=== PATIENT | male | born 1990 | race Caucasian/White ===

== ENCOUNTER 2017-09-12 12:27 | Inpatient (IN) | payer SELFPAY ==
--- NOTE | 2017-09-12 13:00 | ER Document Report ---
ED Medical Screen (RME) - General Chief Complaint: Hand Swelling Stated Complaint: HAND PAIN Time Seen by Provider: 09/12/17 12:58 Mode of Arrival: Ambulatory Information source: Patient Notes: Patient states he developed a hand abscess that started 2 days ago. Yesterday he went to urgent care and they tried to do an incision and drainage as well as gave him antibiotics. He states today it is more swollen and more painful. He states the swelling has spread throughout his hand now. He is a commercial truck driver. He states he is commonly injured by different sea creatures but does not know of a specific injury. TRAVEL OUTSIDE OF THE [place] IN LAST 30 DAYS: No - Related Data Allergies/Adverse Reactions: No Known Allergies Allergy (Unverified 06/10/12 13:40) Past Medical History - Social History Frequency of alcohol use: Occasional Drug Abuse: Marijuana Renal/ Medical History: Denies: Hx Peritoneal Dialysis Traumatic Medical History: Reports: Hx Fractures - FINGERS Physical Exam - Vital signs Vitals: Temp Pulse Resp BP Pulse Ox 98.3 F 74 18 141/77 H 99 09/12/17 12:32 09/12/17 12:32 09/12/17 12:32 09/12/17 12:32 09/12/17 12:32 Course - Vital Signs Vital signs: Temp Pulse Resp BP Pulse Ox 98.3 F 74 18 141/77 H 99 09/12/17 12:32 09/12/17 12:32 09/12/17 12:32 09/12/17 12:32 09/12/17 12:32
--- NOTE | 2017-09-12 13:59 | ER Document Report ---
ED Hand/Wrist Injury - General Chief Complaint: Hand Swelling Stated Complaint: HAND PAIN Time Seen by Provider: 09/12/17 12:58 Mode of Arrival: Ambulatory Information source: Patient TRAVEL OUTSIDE OF THE [place] IN LAST 30 DAYS: No - HPI Injury to: Hand Onset: Last week Where: Outdoors, Work - [employer] Timing: Constant Quality of pain: Dull, Pressure, Throbbing Severity: Moderate Context: Other - MINOR PUNCTURE WOUND Notes: Patient states he was seen by his primary care provider yesterday. An incision and drainage was performed, with very little drainage present. He was given ceftriaxone intramuscular, and prescribed doxycycline and levofloxacin. He states he has been compliant with these medications, however, the swelling and discomfort have increased since beginning treatment yesterday. - Related Data Allergies/Adverse Reactions: No Known Allergies Allergy (Unverified 06/10/12 13:40) Past Medical History - General Information source: Patient - Social History Smoking Status: Current Every Day Smoker Cigarette use (# per day): Yes Chew tobacco use (# tins/day): No Frequency of alcohol use: Occasional Drug Abuse: Marijuana Lives with: Family Family History: Reviewed & Not Pertinent Patient has suicidal ideation: No Patient has homicidal ideation: No - Medical History Medical History: Negative Renal/ Medical History: Denies: Hx Peritoneal Dialysis Traumatic Medical History: Reports: Hx Fractures - FINGERS Surgical Hx: Negative Review of Systems - Review of Systems Constitutional: denies: Chills, Fever EENT: No symptoms reported Cardiovascular: No symptoms reported Respiratory: No symptoms reported Gastrointestinal: No symptoms reported Genitourinary: No symptoms reported Musculoskeletal: See HPI Skin: See HPI Neurological/Psychological: No symptoms reported Physical Exam - Vital signs Vitals: Temp Pulse Resp BP Pulse Ox 98.3 F 74 18 141/77 H 99 09/12/17 12:32 09/12/17 12:32 09/12/17 12:32 09/12/17 12:32 09/12/17 12:32 Interpretation: Hypertensive. No: Tachycardic, Febrile - General General appearance: Appears well, Alert In distress: None - HEENT Head: Normocephalic Eyes: Normal Conjunctiva: Normal Ears: Normal Nasal: Normal Mouth/Lips: Normal Mucous membranes: Normal - Respiratory Respiratory status: No respiratory distress - Cardiovascular Rhythm: Regular - Abdominal Inspection: Normal Distension: No distension - Extremities General upper extremity: No: Normal inspection - L. HAND (SEE BELOW) General lower extremity: Normal inspection Notes: On the extensor surface of the left hand, overlying the second and third metacarpals, is a tender, nodular lesion approximately 1-1/2 cm in diameter. It is erythematous with some violaceous coloration around the periphery and a few small vesicular lesions. Surrounding the primary lesion is moderate edema, which occupies the entire dorsum of the hand and extends beyond the wrist into the forearm. Active range of motion of the fingers is limited by pain and swelling. Passive flexion of the fingers is painful, but all fingers are affected equally. Capillary refill for each nail bed is less than 2 seconds. There is no adenopathy in the elbow area. Minimal fluid is expressed from the lesion, and a specimen is sent to lab for culture. - Neurological Neuro grossly intact: Yes Cognition: Normal Orientation: AAOx4 - Psychological Associated symptoms: Normal affect, Normal mood - Skin Skin Temperature: Warm Skin Moisture: Dry Skin Color: Normal Skin Turgor: Elastic Skin irregularity: Lesion - SEE "UPPER EXTREMITY" ABOVE Course - Vital Signs Vital signs: Temp Pulse Resp BP Pulse Ox 97.7 F 49 L 16 110/67 99 09/12/17 23:16 09/12/17 23:16 09/12/17 23:16 09/12/17 23:16 09/12/17 23:16 - Laboratory Result Diagrams: 09/12/17 14:55 09/12/17 17:11 Laboratory results interpreted by me: 09/12/17 14:55 WBC 12.3 H Seg Neutrophils % 85.4 H Lymphocytes % 10.0 L Absolute Neutrophils 10.5 H - Consults DR. GOMEZ Time consulted: 15:48 Reason for consultation: 09/12/17 16:03 AGREES TO SEE PATIENT IN CONSULTATION DR. LAKE Time consulted: 16:00 Consulted provider: will come to ER Discharge - Discharge Clinical Impression: Infected puncture wound of hand Qualifiers: Encounter type: initial encounter Laterality: left Qualified Code(s): S61.432A - Puncture wound without foreign body of left hand, initial encounter Condition: Stable Disposition: ADMITTED OBSERVATION Admitting Provider: Hospitalist Unit Admitted: Medical Floor
[2017-09-12] MEDS ORDERED: DOXYCYCLINE HYCLATE INJ 100 MG VIAL IV ONE (14:17)
[2017-09-12] MEDS ORDERED: CEFTAZIDIME INJ 1 GM VIAL IV ONE ×2 (14:17→18:45)
--- NOTE | 2017-09-12 15:04 | RADIOLOGY REPORT (SQ) ---
EXAM DESCRIPTION: HAND LEFT 3 VIEWS COMPLETED DATE/TIME: 09/12/2017 2:47 pm REASON FOR STUDY: INFECTED WOUND, R/O FB COMPARISON: None. EXAM PARAMETERS: NUMBER OF VIEWS: Three views. TECHNIQUE: AP, lateral and oblique radiographic images acquired of the left hand. LIMITATIONS: None. FINDINGS: MINERALIZATION: Normal. BONES: No acute fracture or dislocation. No worrisome bone lesions. JOINTS: No effusions. SOFT TISSUES: There is apparent focal soft tissue swelling. No definite radiopaque foreign body is i dentified. OTHER: No other significant finding. IMPRESSION: There is apparent focal soft tissue swelling without a definite radiopaque foreign body being identified. Other findings as noted above TECHNICAL DOCUMENTATION: JOB ID: [id number] [employer]- All Rights Reserved Reading location - IP/workstation name: [email or web address]
[2017-09-12] MEDS ORDERED: IPRATROPIUM/ALBUTEROL 0.5-2.5 MG/3 ML AMPUL NEB PRN (15:59)
[2017-09-12] MEDS ORDERED: MAGNESIUM HYDROXIDE SUSP 30 ML UDCUP PO PRN (15:59)
[2017-09-12] MEDS ORDERED: MAG HYDROX/AL HYDROX/SIMETH SUSP 30 ML UDCUP PO PRN (15:59)
[2017-09-12 16:28] LABS: ABSOLUTE LYMPHOCYTES (AUTO) 1.2 10^3/uL (0.5-4.7); ABSOLUTE MONOCYTES (AUTO) 0.5 10^3/uL (0.1-1.4); ABSOLUTE NEUT (AUTO) 10.5 10^3/uL (1.7-8.2); BASOPHILS % (AUTO) 0.3 % (0-2); EOSINOPHILS % (AUTO) 0.2 % (0-6); HEMOGLOBIN 16.2 g/dL (13.5-17.0); MEAN CORPUSCULAR HEMOGLOBIN 29.2 pg (27.0-33.4); MEAN CORPUSCULAR HGB CONC 33.8 g/dL (32.0-36.0); MEAN CORPUSCULAR VOLUME 87 fl (80-97); MONOCYTES % (AUTO) 4.1 % (3-13); PLATELET COUNT 205 10^3/uL (150-450); RED BLOOD COUNT 5.54 10^6/uL (4.35-5.55); RED CELL DISTRIBUTION WIDTH 12.8 % (11.5-14.0); SEGMENTED NEUTROPHILS % (AUTO) 85.4 % (42-78); TOTAL CELLS COUNTED % (AUTO) 100 %; WHITE BLOOD COUNT 12.3 10^3/uL (4.0-10.5)
[2017-09-12] MEDS ORDERED: OXYCODONE-ACETAMINOPHEN 5-325 MG TABLET PO ONE (16:43)
--- NOTE | 2017-09-12 17:18 | PDOC H&P ---
History of Present Illness Admission Date/PCP: 09/12/17 16:45 Patient complains of: Left hand pain and swelling History of Present Illness: BELEM SOLANO is a 27 year old male without past medical history who presents with a one-week swelling to the dorsum of his left hand after inoculation from a catfish josh prompting him to seek evaluation at urgent care 48 hours ago. The lesion was lanced and drained he received Levaquin and doxycycline and IM Rocephin. Patient has had significant worsening of pain that ascends the forearm and swelling of the hand preventing clenching a fist. He has had subjective fevers prompting evaluation in the emergency room where he was found to have a 1 cm fluctuant draining boil on the dorsum of the left hand with circumferential erythema and pain. He receives empiric antibiotics of doxycycline and Keflex and referred to the hospitalist for admission. Patient denies recurrent infections or previous episode. Past Medical History Medical History: None Cardiac Medical History: Reports: None Pulmonary Medical History: Reports: None EENT Medical History: Reports: None Neurological Medical History: Reports: None Endocrine Medical History: Reports: None Renal/ Medical History: Reports: None Malignancy Medical History: Reports: None GI Medical History: Reports: None Musculoskeltal Medical History: Reports: None Psychiatric Medical History: Reports: None Traumatic Medical History: Reports: None Hematology: Reports: None Infectious Medical History: Reports: None Past Surgical History Past Surgical History: Reports: None Social History Information Source: Patient Smoking Status: Current Every Day Smoker Frequency of Alcohol Use: Occasional Drugs: None - Advance Directive Resuscitation Status: Full Code Family History Family History: None Parental Family History Reviewed: Yes Children Family History Reviewed: Yes Sibling(s) Family History Reviewed.: Yes Medication/Allergy Home Medications: No Home Medications 1 06/10/12 Oxycodone HCl/Acetaminophen [Percocet 5-325 mg Tablet] 1 - 2 tab PO ASDIR PRN # 15 tablet 06/10/12 Penicillin V Potassium [Penicillin Vk 500 mg Tablet] 500 mg PO BID #20 tablet Allergies/Adverse Reactions: No Known Allergies Allergy (Unverified 06/10/12 13:40) Review of Systems Constitutional: ABSENT: chills, fever(s), headache(s), weight gain, weight loss Eyes: ABSENT: visual disturbances Ears: ABSENT: hearing changes Cardiovascular: ABSENT: chest pain, dyspnea on exertion, edema, orthropnea, palpitations Respiratory: ABSENT: cough, hemoptysis Gastrointestinal: ABSENT: abdominal pain, constipation, diarrhea, hematemesis, hematochezia, nausea, vomiting Genitourinary: ABSENT: dysuria, hematuria Musculoskeletal: ABSENT: joint swelling Integumentary: ABSENT: rash, wounds Neurological: ABSENT: abnormal gait, abnormal speech, confusion, dizziness, focal weakness, syncope Psychiatric: ABSENT: anxiety, depression, homidical ideation, suicidal ideation Endocrine: ABSENT: cold intolerance, heat intolerance, polydipsia, polyuria Hematologic/Lymphatic: ABSENT: easy bleeding, easy bruising Physical Exam Vital Signs: Temp Pulse Resp BP Pulse Ox 98.3 F 74 18 141/77 H 99 09/12/17 12:32 09/12/17 12:32 09/12/17 12:32 09/12/17 12:32 09/12/17 12:32 General appearance: PRESENT: mild distress, well-developed, well-nourished Head exam: PRESENT: atraumatic, normocephalic Eye exam: PRESENT: conjunctiva pink, EOMI, PERRLA. ABSENT: scleral icterus Ear exam: PRESENT: normal external ear exam Mouth exam: PRESENT: moist, tongue midline Neck exam: ABSENT: carotid bruit, JVD, lymphadenopathy, thyromegaly Respiratory exam: PRESENT: clear to auscultation kennedy. ABSENT: rales, rhonchi, wheezes Cardiovascular exam: PRESENT: RRR. ABSENT: diastolic murmur, rubs, systolic murmur Pulses: PRESENT: normal dorsalis pedis pul Vascular exam: PRESENT: normal capillary refill GI/Abdominal exam: PRESENT: normal bowel sounds, soft. ABSENT: distended, guarding, mass, organolmegaly, rebound, tenderness Rectal exam: PRESENT: deferred Extremities exam: PRESENT: full ROM. ABSENT: calf tenderness, clubbing, pedal edema Musculoskeletal exam: PRESENT: ambulatory, full ROM, tenderness - Left hand and forearm Back of Hands Image: 1 - 1 cm fluctuant boil with circumferential erythema and induration Neurological exam: PRESENT: alert, awake, oriented to person, oriented to place , oriented to time, oriented to situation, CN II-XII grossly intact. ABSENT: motor sensory deficit Psychiatric exam: PRESENT: appropriate affect, normal mood. ABSENT: homicidal ideation, suicidal ideation Skin exam: PRESENT: dry, intact, warm. ABSENT: cyanosis, rash Results Impressions: Hand X-Ray 09/12/17 14:14 IMPRESSION: There is apparent focal soft tissue swelling without a definite radiopaque foreign body being identified. Other findings as noted above Assessment & Plan - Diagnosis (1) Cellulitis and abscess of hand Is this a current diagnosis for this admission?: Yes Plan: Empiric antibiotics of Levaquin and doxycycline for coverage of Marine organisms. Symptomatic management, orthopedic surgery consult ordered for evaluation of tenosynovitis. (2) Infected puncture wound of hand Qualifiers: Encounter type: initial encounter Laterality: left Qualified Code(s): S61.432A - Puncture wound without foreign body of left hand, initial encounter; L08.9 - Local infection of the skin and subcutaneous tissue, unspecified; L08.9 - Local infection of the skin and subcutaneous tissue, unspecified Is this a current diagnosis for this admission?: Yes Plan: Please see #1 - Time Time Spent: 30 to 50 Minutes - Inpatient Certification Medical Necessity: Need Close Monitoring Due to Risk of Patient Decompensation
[2017-09-12 18:08] LABS: ALANINE AMINOTRANSFERASE 49 U/L (21-72); ALBUMIN 4.6 g/dL (3.5-5.0); ALKALINE PHOSPHATASE 70 U/L (38-126); ANION GAP 11 (5-19); ASPARTATE AMINO TRANSFERASE 54 U/L (17-59); BILIRUBIN,DIRECT 0.4 mg/dL (0.0-0.4); BILIRUBIN,TOTAL 0.6 mg/dL (0.2-1.3); BLOOD UREA NITROGEN 13 mg/dL (7-20); CALCIUM 10.1 mg/dL (8.4-10.2); CARBON DIOXIDE 26 mmol/L (22-30); CHLORIDE 101 mmol/L (98-107); GLUCOSE 91 mg/dL (75-110); SODIUM 138.1 mmol/L (137-145); TOTAL PROTEIN 7.8 g/dL (6.3-8.2)
[2017-09-12] MEDS: DOCUSATE SODIUM 100 MG CAPSULE PO SCH (19:03)
[2017-09-12] MEDS: HEPARIN SOD (PORCINE) 5,000 UNIT/ML 1 ML SYRINGE SUBCUT SCH (21:15)
[2017-09-12] MEDS: NORMAL SALINE 1000 ML 1,000 ML IV SCH (21:19)
[2017-09-13] MEDS: NORMAL SALINE 1000 ML 1,000 ML IV SCH (01:43)
[2017-09-13 04:43] LABS: ABSOLUTE BASOPHILS # (AUTO) 0.1 10^3/uL (0.0-0.2); ABSOLUTE EOSINOPHILS # (AUTO) 0.2 10^3/uL (0.0-0.6); ABSOLUTE LYMPHOCYTES (AUTO) 2.5 10^3/uL (0.5-4.7); ABSOLUTE MONOCYTES (AUTO) 0.7 10^3/uL (0.1-1.4); BASOPHILS % (AUTO) 0.6 % (0-2); EOSINOPHILS % (AUTO) 2.5 % (0-6); HEMATOCRIT 43.3 % (37.9-51.0); HEMOGLOBIN 14.6 g/dL (13.5-17.0); LYMPHOCYTES % (AUTO) 25.9 % (13-45); MEAN CORPUSCULAR HEMOGLOBIN 29.3 pg (27.0-33.4); MEAN CORPUSCULAR HGB CONC 33.8 g/dL (32.0-36.0); MEAN CORPUSCULAR VOLUME 87 fl (80-97); MONOCYTES % (AUTO) 7.2 % (3-13); PLATELET COUNT 177 10^3/uL (150-450); RED CELL DISTRIBUTION WIDTH 12.5 % (11.5-14.0); SEGMENTED NEUTROPHILS % (AUTO) 63.8 % (42-78); TOTAL CELLS COUNTED % (AUTO) 100 %; WHITE BLOOD COUNT 9.5 10^3/uL (4.0-10.5)
[2017-09-13 04:58] LABS: ANION GAP 10 (5-19); BLOOD UREA NITROGEN 13 mg/dL (7-20); CALCIUM 9.3 mg/dL (8.4-10.2); CARBON DIOXIDE 26 mmol/L (22-30); CHLORIDE 104 mmol/L (98-107); GLUCOSE 96 mg/dL (75-110); POTASSIUM 4.4 mmol/L (3.6-5.0); SODIUM 139.5 mmol/L (137-145)
[2017-09-13] MEDS: HEPARIN SOD (PORCINE) 5,000 UNIT/ML 1 ML SYRINGE SUBCUT SCH ×3 (06:39→22:35)
[2017-09-13] MEDS: KETOROLAC TROMETHAMINE INJ/PF 30 MG/1 ML SDV IV PRN ×2 (09:53→16:09)
[2017-09-13] MEDS: DOCUSATE SODIUM 100 MG CAPSULE PO SCH ×2 (09:54→18:36)
[2017-09-13] MEDS: LEVOFLOXACIN 750 MG/D5W RTU 750 MG/150 ML RTUPB IV SCH (09:54)
[2017-09-13] MEDS: ACETAMINOPHEN 325 MG TABLET PO PRN ×2 (14:21→18:33)
[2017-09-13] MEDS ORDERED: OXYCODONE HCL IR 5 MG TABLET PO ONE (20:00)
[2017-09-14] MEDS: HEPARIN SOD (PORCINE) 5,000 UNIT/ML 1 ML SYRINGE SUBCUT SCH ×2 (05:08→15:19)
[2017-09-14] MEDS: KETOROLAC TROMETHAMINE INJ/PF 30 MG/1 ML SDV IV PRN (06:38)
[2017-09-14] MEDS: DOCUSATE SODIUM 100 MG CAPSULE PO SCH (09:46)
[2017-09-14] MEDS: LEVOFLOXACIN 750 MG/D5W RTU 750 MG/150 ML RTUPB IV SCH (09:46)
[2017-09-14 14:55] VITALS: BP 137/69
[2017-09-15] MEDS ORDERED: LEVOFLOXACIN 750 MG TABLET PO SCH (10:00)
== END 2017-09-14 15:20 | disposition home or self-care (01) | DRG 603 ==
LOC: ER 12:27 → OBSVTOIN 16:45 → EH 16:45 → 4N 19:00
PROVIDERS: ADMIT Emergency Medicine; ATTEND Emergency Medicine
DX: L03.114 Cellulitis of left upper limb (principal); F17.200 Nicotine dependence, unspecified, uncomplicated; S61.432A Puncture wound without foreign body of left hand, initial encounter; Y93.89 Activity, other specified; W56.59XA Other contact with other fish, initial encounter
CPT/HCPCS: 36415; 80048; 80053; 85025; 87040; 87070; 87077; 87186; 87205; 96365; 96367; 99285; A6266; J0713; J1644; J1885; J1956; J3490; J7030